=== PATIENT | male | born 1945 | race Caucasian/White ===

== ENCOUNTER → 2021-11-12 | Outpatient (REF) | payer MEDICARE ==
[2021-11-12 15:19] LABS: VITAMIN B12 LEVEL 352 PG/ML (247-911)
[2021-11-12 15:20] LABS: HEPATITIS C VIRUS ABY INDEX > 11.0 INDEX (<0.8)
[2021-11-13 17:07] LABS: HEPATITIS C QUANTITATION HCV Not Detected IU/mL (.)
== END ==
LOC: M LAB REF 12:53
PROVIDERS: ATTEND Internal Medicine
DX: N18.31 Chronic kidney disease, stage 3a (principal); Z13.89 Encounter for screening for other disorder

== ENCOUNTER → 2021-12-04 | Outpatient (CLI) | payer MEDICARE ==
[2021-12-04 13:58] LABS: EOS # 0.2 10^3/uL (0.0-0.5); EOS % 3.7 % (0.0-3.0); HEMOGLOBIN 11.9 g/dl (13.5-17.5); LYMPH # 0.7 10^3/uL (1.5-5.0); LYMPH % 18.2 % (24.0-44.0); MEAN CORPUSCULAR HEMOGLOBIN 29.9 pg (27.0-33.0); MEAN CORPUSCULAR HGB CONC 33.1 g/dl (32.0-36.5); MEAN CORPUSCULAR VOLUME 90.5 fl (80.0-96.0); MONO # 0.6 10^3/uL (0.0-0.8); MONO % 14.4 % (2.0-8.0); NEUTROPHILS # 2.5 10^3/uL (1.5-8.5); NEUTROPHILS % 62.2 % (36.0-66.0); PLATELET COUNT, AUTOMATED 157 10^3/uL (150-450); RED BLOOD COUNT 3.98 10^6/uL (4.30-6.10)
[2021-12-04 14:27] LABS: CALCIUM LEVEL 9.4 MG/DL (8.8-10.2); CREATININE FOR GFR 1.65 MG/DL (0.70-1.30); GLOMERULAR FILTRATION RATE 43.5 (>42); POTASSIUM SERUM 4.9 MEQ/L (3.5-5.1)
== END ==
LOC: M LAB 13:19
PROVIDERS: ATTEND Internal Medicine Cardiovascular Disease
DX: R94.39 Abnormal result of other cardiovascular function study (principal); R07.9 Chest pain, unspecified

== ENCOUNTER → 2021-12-05 | Outpatient (CLI) | payer MEDICARE | LOC: M RAD 07:13 | PROVIDERS: ATTEND Internal Medicine | DX: B18.2 Chronic viral hepatitis C (principal); F03.90 Unspecified dementia, unspecified severity, without behavioral disturbance, psychotic disturbance, mood disturbance, and anxiety ==

== ENCOUNTER → 2021-12-06 | Outpatient (CLI) | payer MEDICARE | LOC: M RAD 08:10 | PROVIDERS: ATTEND Internal Medicine | DX: B18.2 Chronic viral hepatitis C (principal); F02.80 Dementia in other diseases classified elsewhere, unspecified severity, without behavioral disturbance, psychotic disturbance, mood disturbance, and anxiety; R94.39 Abnormal result of other cardiovascular function study; R07.9 Chest pain, unspecified ==

== ENCOUNTER → 2021-12-08 | Outpatient (CLI) | payer MEDICARE | LOC: M LABSMTC 11:21 | PROVIDERS: ATTEND Internal Medicine Cardiovascular Disease | DX: R94.39 Abnormal result of other cardiovascular function study (principal); R07.9 Chest pain, unspecified ==

== ENCOUNTER → 2022-01-28 | Outpatient (CLI) | payer OTHER | LOC: M RAD 13:36 | PROVIDERS: ATTEND Physician Assistant Medical | DX: M25.561 Pain in right knee (principal); M25.761 Osteophyte, right knee; M25.861 Other specified joint disorders, right knee ==

== ENCOUNTER → 2022-02-03 | Outpatient (REF) | LOC: M RAD 09:47 | PROVIDERS: ATTEND Physician Assistant Medical | DX: M25.742 Osteophyte, left hand (principal) ==

== ENCOUNTER 2022-03-10 07:15 | Inpatient (IN) | payer MEDICARE, OTHER ==
[~2022-03-10] VITALS: Ht 172.7 cm; Wt 91.0 kg
[2022-03-10 08:29] LABS: HEMOGLOBIN 11.3 g/dl (13.5-17.5); MEAN CORPUSCULAR HEMOGLOBIN 28.7 pg (27.0-33.0); MEAN CORPUSCULAR HGB CONC 32.3 g/dl (32.0-36.5); MEAN CORPUSCULAR VOLUME 88.8 fl (80.0-96.0); PLATELET COUNT, AUTOMATED 175 10^3/uL (150-450); RED BLOOD COUNT 3.94 10^6/uL (4.30-6.10)
[2022-03-10 08:45] LABS: APPEARANCE, URINE MANUAL HAZY (CLEAR); COLOR, URINE MANUAL YELLOW (YELLOW)
[2022-03-10 08:49] LABS: AMPHETAMINES LEVEL URINE NEGATIVE (NEGATIVE); BARBITURATES URINE NEGATIVE (NEGATIVE); BENZODIAZEPINES URINE NEGATIVE (NEGATIVE); BILIRUBIN, URINE MANUAL NEGATIVE (NEGATIVE); CANNABINOIDS URINE NEGATIVE (NEGATIVE); COCAINE METABOLITE URINE NEGATIVE (NEGATIVE); GLUCOSE, URINE (UA) MANUAL NEGATIVE (NEGATIVE); KETONE, URINE MANUAL 1+ mg/dL (NEGATIVE); METHADONE URINE NEGATIVE (NEGATIVE); NITRITE, URINE MANUAL NEGATIVE (NEGATIVE); OPIATES URINE NEGATIVE (NEGATIVE); PHENCYCLIDINE URINE NEGATIVE (NEGATIVE); PROTEIN, URINE MANUAL 3+ mg/dL (NEGATIVE); SPECIFIC GRAVITY,URINE MANUAL 1.025 (1.002-1.035); UROBILINOGEN, URINE MANUAL NORMAL (NORMAL)
[2022-03-10 08:50] LABS: BLOOD URINE MANUAL NEGATIVE (NEGATIVE); LEUKOCYTE ESTERASE, URINE MAN NEGATIVE (NEGATIVE)
[2022-03-10 08:54] LABS: RSV AMPLIFICATION NEGATIVE (NEGATIVE)
[2022-03-10 09:00] LABS: SQUAMOUS EPITHELIAL CELL URINE SMALL AMOUNT /hpf (SMALL AMT)
[2022-03-10 09:01] LABS: AMORPHOUS SEDIMENT, URINE MOD AMOUNT (NEGATIVE); BACTERIA, URINE MOD AMOUNT; HYALINE CAST, URINE NONE SEEN /lpf (0-1)
[2022-03-10 09:14] LABS: ACETAMINOPHEN LEVEL < 2.0 UG/ML (10.0-30.0); ALBUMIN 3.9 GM/DL (3.2-5.2); ALT/SGPT 13 U/L (12-78); BILIRUBIN,DIRECT < 0.1 MG/DL (0.0-0.2); BILIRUBIN,TOTAL 0.6 MG/DL (0.2-1.0); BLOOD UREA NITROGEN 29 MG/DL (7-18); CALCIUM LEVEL 9.2 MG/DL (8.8-10.2); CARBON DIOXIDE LEVEL 25 MEQ/L (21-32); CHLORIDE LEVEL 106 MEQ/L (98-107); CREATININE FOR GFR 1.75 MG/DL (0.70-1.30); ETHYL ALCOHOL (ETHANOL) < 0.003 % (0.000-0.010); GLOMERULAR FILTRATION RATE 40.7 (>42); GLUCOSE, FASTING 128 MG/DL (70-100); POTASSIUM SERUM 4.5 MEQ/L (3.5-5.1); SALICYLATE LEVEL < 1.7 MG/DL (5.0-30.0); SODIUM LEVEL 136 MEQ/L (136-145); TOTAL PROTEIN 7.6 GM/DL (6.4-8.2)
[2022-03-10] MEDS ORDERED: NS 500 ML IV ONE (09:45)
[2022-03-10] MEDS ORDERED: METO1TAB33 PO (10:43)
[2022-03-10] MEDS ORDERED: METF10004 PO (10:43)
[2022-03-10] MEDS ORDERED: ROSU40TA4 PO (10:43)
[2022-03-10] MEDS ORDERED: AMLO1TAB24 PO (10:43)
[2022-03-10] MEDS ORDERED: LOSA100T45 PO (10:43)
[2022-03-10] MEDS ORDERED: LEVO75TA34 PO (10:43)
[2022-03-10] MEDS ORDERED: ASPI81TA26 PO (10:43)
[2022-03-10] MEDS ORDERED: DEXTROSE 50% 50 ML SYRINGE IV PRN (10:45)
[2022-03-10] MEDS ORDERED: HOME MED LIST COMPLETE! XX SCH (10:45)
[2022-03-10] MEDS ORDERED: GLUCOSE 4GM CHEW TABLET PO PRN (10:45)
[2022-03-10] MEDS ORDERED: GLUCAGON INJ 1MG VIAL SC PRN (10:45)
[2022-03-10] MEDS: INSULIN LISPRO (NovoLOG) PER UNIT SC SCH ×2 (12:10→16:49)
[2022-03-10] MEDS: ASPIRIN 81MG ENTERIC TABLET PO SCH (12:11)
[2022-03-10] MEDS: QUEtiapine FUMARATE 12.5 MG HALF-TAB PO SCH (12:11)
[2022-03-10] MEDS: ENOXAPARIN 40MG/0.4ML SYRINGE (J1650 PER 10MG) SC SCH (12:11)
[2022-03-10] MEDS: LEVOTHYROXINE 75MCG TABLET (0.075MG) PO SCH (12:11)
[2022-03-10] MEDS: LOSARTAN 50MG TABLET PO SCH (13:15)
[2022-03-10 14:00] VITALS: BP 179/96
[2022-03-10 15:36] VITALS: BP 174/83
[2022-03-10] MEDS ORDERED: amLODIPine 5 MG TAB PO ONE (17:05)
[2022-03-10] MEDS ORDERED: METOPROLOL SUCC (TopROL XL) 50MG **XL** TAB PO SCH (21:00)
[2022-03-10] MEDS ORDERED: ROSUVASTATIN 10 MG TAB (CRESTOR) PO SCH (21:00)
[2022-03-10] MEDS ORDERED: LOSARTAN 50MG TABLET PO SCH (21:00)
[2022-03-10] MEDS ORDERED: INSULIN LISPRO (NovoLOG) PER UNIT SC SCH (21:00)
[2022-03-10] MEDS ORDERED: LIDOCAINE 5% (LIDODERM) PATCH TD SCH (22:50)
[2022-03-10] MEDS ORDERED: ACETAMINOPHEN TAB 650MG DOSE (2X325MG) PO PRN (22:50)
[2022-03-11 05:47] LABS: HEMATOCRIT 35.4 % (42.0-52.0); HEMOGLOBIN 11.1 g/dl (13.5-17.5); MEAN CORPUSCULAR HEMOGLOBIN 28.2 pg (27.0-33.0); MEAN CORPUSCULAR HGB CONC 31.4 g/dl (32.0-36.5); MEAN CORPUSCULAR VOLUME 89.8 fl (80.0-96.0); PLATELET COUNT, AUTOMATED 105 10^3/uL (150-450); RED BLOOD COUNT 3.94 10^6/uL (4.30-6.10); WHITE BLOOD COUNT 3.5 10^3/uL (4.0-10.0)
[2022-03-11] MEDS: LEVOTHYROXINE 75MCG TABLET (0.075MG) PO SCH (06:00)
[2022-03-11 06:20] VITALS: BP 121/86
[2022-03-11 06:31] LABS: CALCIUM LEVEL 8.7 MG/DL (8.8-10.2); CREATININE FOR GFR 1.28 MG/DL (0.70-1.30); GLOMERULAR FILTRATION RATE 58.3 (>42); MAGNESIUM LEVEL 1.5 MG/DL (1.8-2.4); PHOSPHORUS LEVEL 3.1 MG/DL (2.5-4.9)
[2022-03-11] MEDS ORDERED: MAGNESIUM OXIDE 400MG TAB (MAG-OX) PO ONE (07:10)
[2022-03-11] MEDS: ASPIRIN 81MG ENTERIC TABLET PO SCH (08:43)
[2022-03-11] MEDS: QUEtiapine FUMARATE 12.5 MG HALF-TAB PO SCH (08:43)
[2022-03-11] MEDS: INSULIN LISPRO (NovoLOG) PER UNIT SC SCH ×2 (08:43→12:00)
[2022-03-11] MEDS: ENOXAPARIN 40MG/0.4ML SYRINGE (J1650 PER 10MG) SC SCH (08:44)
[2022-03-11 08:47] VITALS: BP 163/87
[2022-03-11] MEDS: LOSARTAN 50MG TABLET PO SCH (08:47)
[2022-03-11] MEDS ORDERED: **NOTE PATIENT COMMENT** MISC XX SCH (09:00)
[2022-03-11] MEDS ORDERED: ENOXAPARIN 40MG/0.4ML SYRINGE (J1650 PER 10MG) SC SCH (09:00)
[2022-03-11] MEDS ORDERED: amLODIPine 5 MG TAB PO SCH (09:00)
[2022-03-11 10:15] LABS: HEMATOCRIT 35.3 % (42.0-52.0); HEMOGLOBIN 11.2 g/dl (13.5-17.5); MEAN CORPUSCULAR HEMOGLOBIN 27.7 pg (27.0-33.0); MEAN CORPUSCULAR HGB CONC 31.7 g/dl (32.0-36.5); MEAN CORPUSCULAR VOLUME 87.4 fl (80.0-96.0); PLATELET COUNT, AUTOMATED 165 10^3/uL (150-450); RED BLOOD COUNT 4.04 10^6/uL (4.30-6.10); WHITE BLOOD COUNT 3.4 10^3/uL (4.0-10.0)
[2022-03-11 12:50] VITALS: BP 142/88
[2022-03-11] MEDS ORDERED: AMLO1TAB24 PO (12:52)
[2022-03-11] MEDS ORDERED: QUET1TAB17 PO (12:53)
[2022-03-11 13:38] LABS: APPEARANCE, URINE MANUAL CLEAR (CLEAR); COLOR, URINE MANUAL YELLOW (YELLOW)
[2022-03-11 13:39] LABS: GLUCOSE, URINE (UA) MANUAL NEGATIVE (NEGATIVE); PROTEIN, URINE MANUAL 2+ mg/dL (NEGATIVE)
[2022-03-11 13:40] LABS: BILIRUBIN, URINE MANUAL NEGATIVE (NEGATIVE); BLOOD URINE MANUAL NEGATIVE (NEGATIVE); LEUKOCYTE ESTERASE, URINE MAN NEGATIVE (NEGATIVE); NITRITE, URINE MANUAL NEGATIVE (NEGATIVE); UROBILINOGEN, URINE MANUAL NORMAL (NORMAL)
[2022-03-11 14:00] VITALS: BP 127/88
[2022-03-11 14:22] LABS: BACTERIA, URINE SMALL AMOUNT; KETONE, URINE MANUAL NEGATIVE (NEGATIVE); RBC, URINE NONE SEEN /hpf (0-3); SQUAMOUS EPITHELIAL CELL URINE NONE SEEN /hpf (SMALL AMT)
[2022-03-11 14:23] LABS: HYALINE CAST, URINE NONE SEEN /lpf (0-1); MUCUS, URINE SMALL AMOUNT (NEGATIVE)
[2022-03-12] MEDS ORDERED: QUEtiapine FUMARATE 25 MG TAB PO SCH (09:00)
== END 2022-03-11 15:20 | disposition home or self-care (01) | DRG 885 ==
LOC: M ED 07:15 → M ED INP 10:30 → ENRESERV 10:49 → M MS5PR 11:45
PROVIDERS: ADMIT Internal Medicine; ATTEND Internal Medicine
DX: F23 Brief psychotic disorder (principal); F02.81 Dementia in other diseases classified elsewhere, unspecified severity, with behavioral disturbance; G30.9 Alzheimer's disease, unspecified; N18.9 Chronic kidney disease, unspecified; I25.10 Atherosclerotic heart disease of native coronary artery without angina pectoris; I12.9 Hypertensive chronic kidney disease with stage 1 through stage 4 chronic kidney disease, or unspecified chronic kidney disease; E78.5 Hyperlipidemia, unspecified; E03.9 Hypothyroidism, unspecified; E11.22 Type 2 diabetes mellitus with diabetic chronic kidney disease; Z95.5 Presence of coronary angioplasty implant and graft; D63.8 Anemia in other chronic diseases classified elsewhere; Z79.82 Long term (current) use of aspirin; Z79.890 Hormone replacement therapy; Z79.84 Long term (current) use of oral hypoglycemic drugs; Z79.899 Other long term (current) drug therapy; Z20.822 Contact with and (suspected) exposure to COVID-19; D72.819 Decreased white blood cell count, unspecified

== ENCOUNTER → 2022-04-24 | Outpatient (CLI) | payer MEDICARE ==
[~2022-04-24] MED LIST: AMLO1TAB24 PO; ASPI81TA26 PO; LEVO75TA34 PO; LOSA100T45 PO; METF10004 PO; METO1TAB33 PO; QUET1TAB17 PO; ROSU40TA4 PO
== END ==
LOC: M WUC 08:43
PROVIDERS: ATTEND Physician Assistant Medical
DX: M25.511 Pain in right shoulder (principal); M19.011 Primary osteoarthritis, right shoulder

== ENCOUNTER → 2022-05-20 | Outpatient (REF) | payer MEDICARE ==
[2022-05-20 18:37] LABS: FERRITIN 11.1 NG/ML (10.5-307.3); PERCENT SATURATION 13.6 % (19.7-50.0)
== END ==
LOC: M LAB REF 17:24
PROVIDERS: ATTEND Internal Medicine
DX: D64.9 Anemia, unspecified (principal)

== ENCOUNTER → 2022-08-20 | Outpatient (REF) | payer MEDICARE ==
[2022-08-20 13:02] LABS: FERRITIN 13.4 NG/ML (10.5-307.3)
[2022-08-20 13:03] LABS: PERCENT SATURATION 11.7 % (19.7-50.0)
== END ==
LOC: M LAB REF 12:21
PROVIDERS: ATTEND Internal Medicine
DX: D64.9 Anemia, unspecified (principal)

== ENCOUNTER → 2022-12-11 | Outpatient (CLI) | payer MEDICARE ==
[~2022-12-11] MED LIST changes: -LOSA100T45 PO; +LOSA100T46 PO
[2022-12-11 17:16] LABS: PERCENT SATURATION 17.9 % (19.7-50.0)
[2022-12-11 17:18] LABS: FERRITIN 18.7 NG/ML (10.5-307.3)
== END ==
LOC: M WUC 10:39
PROVIDERS: ATTEND Internal Medicine
DX: M25.512 Pain in left shoulder (principal)

== ENCOUNTER 2023-04-06 14:47 | Emergency (ER) | payer MEDICARE ==
[~2023-04-06] VITALS: Ht 175.3 cm; Wt 100.9 kg
[2023-04-06 16:00] LABS: BASO # 0.1 10^3/uL (0.0-0.2); BASO % 0.9 % (0.0-1.0); EOS # 0.3 10^3/uL (0.0-0.5); EOS % 6.3 % (0.0-3.0); HEMATOCRIT 31.4 % (42.0-52.0); HEMOGLOBIN 10.6 g/dl (13.5-17.5); LYMPH # 0.9 10^3/uL (1.5-5.0); MEAN CORPUSCULAR HEMOGLOBIN 31.8 pg (27.0-33.0); MEAN CORPUSCULAR HGB CONC 33.8 g/dl (32.0-36.5); MEAN CORPUSCULAR VOLUME 94.3 fl (80.0-96.0); MONO # 0.6 10^3/uL (0.0-0.8); MONO % 11.2 % (2.0-8.0); NEUTROPHILS # 3.4 10^3/uL (1.5-8.5); NEUTROPHILS % 64.2 % (36.0-66.0); PLATELET COUNT, AUTOMATED 140 10^3/uL (150-450); RED BLOOD COUNT 3.33 10^6/uL (4.30-6.10); WHITE BLOOD COUNT 5.4 10^3/uL (4.0-10.0)
[2023-04-06 16:12] LABS: INR 1.12; PROTHROMBIN TIME 14.1 SECONDS (12.5-14.5)
[2023-04-06 16:13] LABS: PARTIAL THROMBOPLASTIN TIME 25.4 SECONDS (24.8-34.2)
[2023-04-06 16:25] LABS: CALCIUM LEVEL 8.9 MG/DL (8.3-10.6); CREATININE FOR GFR 1.92 MG/DL (0.70-1.30); GLOMERULAR FILTRATION RATE 36.4 (>42); POTASSIUM SERUM 4.7 MMOL/L (3.5-5.1)
[2023-04-06] MEDS ORDERED: ANUS2.5C2 TOP (17:46)
[2023-04-06] MEDS ORDERED: ANUS25SU PR (17:46)
[2023-04-06 18:06] VITALS: BP 184/88; TEMP 98.3; O2SAT 98
== END 2023-04-06 18:09 | disposition home or self-care (01) ==
LOC: M ED 14:47
DX: K64.8 Other hemorrhoids (principal); K64.9 Unspecified hemorrhoids; E11.9 Type 2 diabetes mellitus without complications; I10 Essential (primary) hypertension; N18.30 Chronic kidney disease, stage 3 unspecified; I25.2 Old myocardial infarction; Z79.84 Long term (current) use of oral hypoglycemic drugs; Z79.899 Other long term (current) drug therapy

== ENCOUNTER → 2023-06-26 | Outpatient (REF) | payer MEDICARE ==
[~2023-06-26] MED LIST changes: +ANUS2.5C2 TOP; +ANUS25SU PR
[2023-06-26 13:07] LABS: FERRITIN 24.2 NG/ML (10.5-307.3)
== END ==
LOC: M LAB REF 12:18
PROVIDERS: ATTEND Internal Medicine
DX: D50.9 Iron deficiency anemia, unspecified (principal)